=== PATIENT | male | born 1955 | race American Indian/Alaskan Native ===

== ENCOUNTER 2018-01-06 20:39 | Emergency (ER) | payer OTHER ==
[2018-01-06] MEDS ORDERED: ASPIRIN PO ONE (21:21)
[2018-01-06 21:29] LABS: Basophils % (Auto) 0.4 % (0.0-1.8); Eosinophils # (Auto) 0.1 K/mm3 (0.0-0.4); Eosinophils % (Auto) 0.8 % (0.0-4.3); Hematocrit 44.4 % (35.5-45.6); Hemoglobin 14.3 gm/dl (11.8-15.2); Mean Corpuscular HGB Conc 32 % (32-34); Mean Corpuscular Hemoglobin 31 pg (28-32); Mean Corpuscular Volume 97 fl (84-94); Monocytes # (Auto) 0.5 K/mm3 (0.0-0.8); Monocytes % (Auto) 6.3 % (0.0-7.3); Red Blood Count 4.56 M/mm3 (3.65-5.03); Red Cell Distribution Width 15.1 % (13.2-15.2)
[2018-01-06 21:40] LABS: INR 1.08 (0.87-1.13); Platelet Count 142 K/mm3 (140-440)
[2018-01-06 21:59] LABS: Alanine Aminotransferase 69 units/L (7-56); BUN/Creatinine Ratio 22; Blood Urea Nitrogen 22 mg/dL (9-20); Calcium 8.7 mg/dL (8.4-10.2); Hemolysis Index 12
--- NOTE | 2018-01-06 22:15 | XRay Report ---
FINAL REPORT PROCEDURE: XR CHEST 1V AP TECHNIQUE: Chest radiograph anteroposterior view. CPT 34236 HISTORY: Shortness of breath COMPARISON: No prior studies are available for comparison. FINDINGS: Heart: The heart size is slightly pronounced. Mediastinum/Vessels: Normal. Lungs/Pleural space: Normal. Bony thorax: No acute osseous abnormality. Life support devices: None. IMPRESSION: There is no evidence of an acute cardiopulmonary process. Mild cardiomegaly..
[2018-01-06] MEDS ORDERED: LASIX IV ONE (22:22)
[2018-01-06] MEDS ORDERED: PROVENTIL IH ONE (22:23)
[2018-01-06] MEDS ORDERED: DUONEB *Not for PRN Use IH ONE (22:23)
--- NOTE | 2018-01-06 22:41 | Emergency Department Report ---
ED Shortness of Breath HPI - General Chief Complaint: Dyspnea/Respdistress Stated Complaint: KEILA Time Seen by Provider: 01/06/18 22:06 Source: patient, EMS Mode of arrival: Ambulatory Limitations: No Limitations - History of Present Illness Initial Comments: 24 hours of progressive onset shortness of breath. Worse with exertion and position. Nonreactive cough. Patient is unable [employer] related to his COPD or CHF. Uses a bradycardia 3 days ago for the same complaint. No significant chest pain. Legs are more swollen than usual. Patient states been quite with his Lasix and his cardiac diet. Afebrile. Denies smoking, alcohol use, or drug use. - Related Data Previous Rx's Medication Instructions Recorded Last Taken Type predniSONE [Deltasone] 40 mg PO QDAY #8 tab 01/07/18 Unknown Rx Allergies Allergy/AdvReac Type Severity Reaction Status Date / Time No Known Allergies Allergy Unverified 01/06/18 21:20 ED Review of Systems ROS: Stated complaint: KEILA Other details as noted in HPI Comment: All other systems reviewed and negative Respiratory: cough, shortness of breath, SOB at rest. denies: wheezing Cardiovascular: edema ED Past Medical Hx - Past Medical History Hx Congestive Heart Failure: Yes Hx COPD: Yes - Surgical History Past Surgical History?: No - Social History Smoking Status: Former Smoker Substance Use Type: None - Medications Home Medications: Home Medications Medication Instructions Recorded Confirmed Last Taken Type predniSONE [Deltasone] 40 mg PO QDAY #8 tab 01/07/18 Unknown Rx ED Physical Exam - General Limitations: No Limitations General appearance: alert, in no apparent distress - Head Head exam: Present: atraumatic, normocephalic - Eye Eye exam: Present: normal appearance - ENT ENT exam: Present: mucous membranes moist - Neck Neck exam: Present: normal inspection - Respiratory Respiratory exam: Present: normal lung sounds bilaterally. Absent: respiratory distress - Cardiovascular Cardiovascular Exam: Present: regular rate, normal rhythm, JVD. Absent: systolic murmur, diastolic murmur, rubs, gallop - GI/Abdominal GI/Abdominal exam: Present: soft, normal bowel sounds - Rectal Rectal exam: Present: deferred - Extremities Exam Extremities exam: Present: normal inspection, pedal edema - Back Exam Back exam: Present: normal inspection - Neurological Exam Neurological exam: Present: alert, oriented X3 - Psychiatric Psychiatric exam: Present: normal affect, normal mood - Skin Skin exam: Present: warm, dry, intact, normal color. Absent: rash ED Course Vital Signs 01/06/18 01/06/18 01/06/18 20:38 21:51 22:01 Pulse Rate 108 H Respiratory 16 31 H 26 H Rate Blood Pressure 128/90 138/109 O2 Sat by Pulse 95 72 L Oximetry 01/06/18 22:14 Pulse Rate Respiratory 20 Rate Blood Pressure O2 Sat by Pulse 98 Oximetry - Reevaluation(s) Reevaluation #1: Patient feels much improved on reevaluation. 01/07/18 01:33 ED Medical Decision Making - Lab Data Result diagrams: 01/06/18 21:22 01/06/18 21:28 - EKG Data -: EKG Interpreted by Me EKG shows normal: sinus rhythm, axis, intervals, QRS complexes, ST-T waves Rate: tachycardia - Radiology Data Radiology results: report reviewed, image reviewed - Medical Decision Making 62-year-old male with past medical history of CHF, COPD that presents with 24 hours shortness of breath and leg swelling. Patient was seen at [place] couple of days ago and was told that he has heart failure. Patient states compliance with his medication. He is well-appearing on presentation. Vitals are stable. Pt is well appearing. Patient still endorsing being dyspneic. Patient does have 3+ pitting edema bilaterally on exam. He was given 40 mg IV Lasix in the ER. I'm unable to get his medical chart from [place] at this point in time. Patient has never been to this ER before. BP elevated at 9000. Patient with normal oxygenation on room air. After his breathing treatment and Lasix, he feels back to his baseline. Patient will be given steroids to go home with. He 'll continue taking his home oral Lasix. He'll follow-up with his family doctor for further management of his issues. - Differential Diagnosis pneumonia, COPD exacerbation, flash pulmonary edema, CHF exacerbation, ACS Critical care attestation.: If time is entered above; I have spent that time in minutes in the direct care of this critically ill patient, excluding procedure time. ED Disposition Clinical Impression: COPD exacerbation, CHF exacerbation Disposition: - TO HOME OR SELFCARE Is pt being admited?: No Condition: Stable Instructions: Chronic Obstructive Pulmonary Disease (ED), Heart Failure (ED) Prescriptions: predniSONE [Deltasone] 40 mg PO QDAY #8 tab Referrals: NOHEMI OROPEZA MD [Primary Care Provider] - 3-5 Days
--- NOTE | 2018-01-06 23:29 | XRay Report ---
FINAL REPORT PROCEDURE: XR CHEST ROUTINE 2V TECHNIQUE: Chest radiograph anteroposterior view. CPT 26604 HISTORY: shortness of breath COMPARISON: No prior studies are available for comparison. FINDINGS: Heart: Normal. Mediastinum/Vessels: Normal. Lungs/Pleural space: Normal. Bony thorax: No acute osseous abnormality. Life support devices: None. IMPRESSION: No acute cardiopulmonary abnormality.
[2018-01-07] MEDS ORDERED: LASIX IV ONE (01:27)
[2018-01-07 01:32] VITALS: BP 122/95
== END 2018-01-07 03:20 | disposition home or self-care (01) ==
LOC: ED 20:39
DX: J44.1 Chronic obstructive pulmonary disease with (acute) exacerbation (principal); I50.9 Heart failure, unspecified; Z87.891 Personal history of nicotine dependence
CPT/HCPCS: 36415; 71045; 71046; 80053; 83880; 84484; 85025; 85610; 85730; 93005; 93010; 96374; 96375; 99285; J1940; 94640

== ENCOUNTER 2018-06-06 21:51 | Inpatient (IN) | payer OTHER ==
[2018-06-06 22:41] LABS: Basophils % (Auto) 0.6 % (0.0-1.8); Eosinophils # (Auto) 0.1 K/mm3 (0.0-0.4); Eosinophils % (Auto) 0.9 % (0.0-4.3); Hematocrit 34.6 % (35.5-45.6); Hemoglobin 11.4 gm/dl (11.8-15.2); Lymphocytes # (Auto) 1.2 K/mm3 (1.2-5.4); Lymphocytes % (Auto) 17.2 % (13.4-35.0); Mean Corpuscular HGB Conc 33 % (32-34); Mean Corpuscular Hemoglobin 32 pg (28-32); Mean Corpuscular Volume 97 fl (84-94); Monocytes # (Auto) 0.7 K/mm3 (0.0-0.8); Monocytes % (Auto) 10.2 % (0.0-7.3); Platelet Count 308 K/mm3 (140-440); Red Blood Count 3.55 M/mm3 (3.65-5.03); Red Cell Distribution Width 15.3 % (13.2-15.2)
[2018-06-06 23:05] LABS: BUN/Creatinine Ratio 20; Blood Urea Nitrogen 16 mg/dL (9-20); Calcium 8.3 mg/dL (8.4-10.2); Hemolysis Index 4
--- NOTE | 2018-06-06 23:38 | XRay Report ---
FINAL REPORT PROCEDURE: Chest. TECHNIQUE: AP and lateral views. HISTORY: Shortness of breath . COMPARISON: Chest 01/06/2018. FINDINGS: The heart size is enlarged. There is mild tortuosity of the thoracic aorta. The lungs are grossly clear. There are no pleural effusions. The soft tissues and regional skeleton are unremarkable. IMPRESSION: Cardiomegaly.
--- NOTE | 2018-06-07 00:53 | Emergency Department Report ---
ED Shortness of Breath HPI - General Chief Complaint: Dyspnea/Respdistress Stated Complaint: KEILA Time Seen by Provider: 06/07/18 00:38 Source: patient Mode of arrival: Ambulatory Limitations: No Limitations - History of Present Illness Initial Comments: 62-year-old male with history of CHF associated with shortness of breath onset today. Patient reports dyspnea on exertion. Denies chest pain. Reported swelling in bilateral lower extremity 3 weeks. States he is not currently taking Lasix. Patient reports cough that is intermittently protective of white sputum. Denies fever and chills MD Complaint: shortness of breath, cough -: This evening Severity: moderate Improves With: oxygen, rest Worsens With: exertion Known History Of: congestive heart failure Associated Symptoms: cough, sputum production - Related Data Previous Rx's Medication Instructions Recorded Last Taken Type predniSONE [Deltasone] 40 mg PO QDAY #8 tab 01/07/18 Unknown Rx Allergies Allergy/AdvReac Type Severity Reaction Status Date / Time No Known Allergies Allergy Unverified 01/06/18 21:20 ED Review of Systems ROS: Stated complaint: KEILA Other details as noted in HPI Comment: All other systems reviewed and negative Constitutional: denies: chills, fever Respiratory: cough Cardiovascular: denies: chest pain, palpitations Musculoskeletal: other (bilateral leg swelling) ED Past Medical Hx - Past Medical History Hx Congestive Heart Failure: Yes Hx COPD: Yes - Surgical History Past Surgical History?: No - Social History Smoking Status: Former Smoker Substance Use Type: None - Medications Home Medications: Home Medications Medication Instructions Recorded Confirmed Last Taken Type predniSONE [Deltasone] 40 mg PO QDAY #8 tab 01/07/18 Unknown Rx ED Physical Exam - General Limitations: No Limitations General appearance: alert, in no apparent distress - Head Head exam: Present: atraumatic, normocephalic - Eye Eye exam: Present: normal appearance - ENT ENT exam: Present: mucous membranes moist - Neck Neck exam: Present: normal inspection - Respiratory Respiratory exam: Present: normal lung sounds bilaterally. Absent: respiratory distress - Cardiovascular Cardiovascular Exam: Present: normal rhythm, tachycardia - GI/Abdominal GI/Abdominal exam: Present: soft. Absent: tenderness - Extremities Exam Extremities exam: Present: other (2+ pitting edema BLE) - Neurological Exam Neurological exam: Present: alert, oriented X3 - Psychiatric Psychiatric exam: Present: normal affect, normal mood - Skin Skin exam: Present: warm, dry, intact, normal color. Absent: rash ED Course Vital Signs 06/06/18 06/07/18 06/07/18 22:03 00:52 01:50 Temperature 99.2 F 99.3 F Pulse Rate 113 H 110 H 108 H Respiratory 20 16 18 Rate Blood Pressure 114/78 Blood Pressure 123/92 126/92 [Left] O2 Sat by Pulse 100 99 98 Oximetry ED Medical Decision Making - Lab Data Result diagrams: 06/06/18 22:23 06/06/18 Unknown - EKG Data -: EKG Interpreted by Me EKG shows normal: axis, intervals, QRS complexes Rate: tachycardia - EKG Data Interpretation: nonspecific ST-T wave kyung 06/07/18 03:26 T wave inversions in V5-6 - Radiology Data Radiology results: report reviewed, image reviewed - Medical Decision Making 62-year-old male with history of CHF presents to ED with shortness of breath. Patient showing signs of volume overload with pitting edema in bilateral lower extremities dyspnea on exertion. Nurse ambulated patient around ER and O2 sats dropped into the 70s. BNP markedly elevated. Chest x-ray shows cardiomegaly but no pulmonary edema at this time. Will medicate with Lasix and admitted to hospitalist - Differential Diagnosis CHF, pulm edema, ACS Critical Care Time: Yes Critical care time in (mins) excluding proc time.: 35 Critical care attestation.: If time is entered above; I have spent that time in minutes in the direct care of this critically ill patient, excluding procedure time. Critical Care Time: 35 minutes. ED Disposition Clinical Impression: Hypoxia, CHF, acute on chronic Disposition: OP ADMIT IP TO THIS HOSP Is pt being admited?: Yes Condition: Stable Referrals: PRIMARY CARE, [Primary Care Provider] - 3-5 Days Time of Disposition: 03:06
[2018-06-07] MEDS ORDERED: LASIX IV ONE (03:05)
[2018-06-07] MEDS ORDERED: SODIUM CHLORIDE FLUSH SYRINGE 10 ML IV PRN (04:23)
[2018-06-07] MEDS ORDERED: TYLENOL PO PRN (04:23)
[2018-06-07] MEDS ORDERED: ZOFRAN IV PRN (04:23)
--- NOTE | 2018-06-07 04:25 | History and Physical Report ---
History of Present Illness Date of examination: 06/07/18 History of present illness: 62-year-old man with a history of CHF, COPD comes emergency room with complaints of shortness of breath, PND, orthopnea, dyspnea on exertion and lower extremity edema. He has been out of his Lasix for one month. Review of systems Constitutional: no weight loss, chills, fever Ears, eyes, nose, mouth and throat: no nasal congestion, no nasal discharge, no sinus pressure, no vision change, no red eye. Neck: No neck pain or rigidity. Cardiovascular: no chest pain, palpitations Respiratory: no cough Gastrointestinal: no abdominal pain hematochezia Genitourinary : no frequency , no hematuria Musculoskeletal: no joint swelling or muscle ache Integumentary: no rash, no pruritis Neurological: no parathesias, no numbness, no focal weakness Endocrine: no cold or heat intolerance, no polyuria or polydipsia Hematologic/Lymphatic: no easy bruising, no easy bleeding, no gland swelling Allergic/Immunologic: no urticaria, no angioedema. PAST MEDICAL HISTORY: CHF, COPD PAST SURGICAL HISTORY: None SOCIAL HISTORY: No alcohol, no drugs, tobacco FAMILY HISTORY: Hypertension Medications and Allergies Allergies Allergy/AdvReac Type Severity Reaction Status Date / Time No Known Allergies Allergy Unverified 01/06/18 21:20 Home Medications Medication Instructions Recorded Confirmed Last Taken Type Albuterol Sulfate [Proair 90 mcg IH DAILY 06/07/18 06/07/18 Unknown History Respiclick] Aspirin [Aspirin EC] 81 mg PO DAILY 06/07/18 06/07/18 Unknown History Atorvastatin [Lipitor Tab] 40 mg PO QHS 06/07/18 06/07/18 Unknown History Budesonide/Formoterol Fumarate 10.2 gm IH DAILY 06/07/18 06/07/18 Unknown History [Symbicort 160-4.5 Mcg Inhaler] Folic Acid [Folvite] 1 mg PO DAILY 06/07/18 06/07/18 Unknown History Metoprolol Succinate [Toprol Xl] 25 mg PO DAILY 06/07/18 06/07/18 Unknown History Exam - Physical Exam Narrative exam: Gen. appearance: Patient lying in bed, no apparent distress HEENT: Normocephalic, atraumatic, pupils equally round and reactive to light, extraocular movement intact, and no sclericterus,. No JVD or thyromegaly or nodule,neck supple, no carotid bruit ,mucous membranes moist, no exudate or erythema Heart: S1, S2, regular rate and rhythm Lungs: Crackles bilaterally, breathing comfortable Abdomen: Positive bowel sounds, non-tender, nondistended, no organomegaly Extremity:2+edema up to knee, no cyanosis, clubbing Skin: no rash, dry, warm Neuro: Oriented 3, cranial nerves II-12 intact, speech is fluent, motor and sensory intact - Constitutional Vitals: Temp Pulse Resp BP Pulse Ox 99.3 F 116 H 18 107/80 98 06/07/18 00:52 06/07/18 04:00 06/07/18 04:00 06/07/18 04:00 06/07/18 04:00 Results - Labs CBC & Chem 7: 06/06/18 22:23 06/06/18 Unknown Labs: Abnormal lab results 06/06/18 06/06/18 06/06/18 Range/Units 22:23 Unknown Unknown RBC 3.55 L (3.65-5.03) M/mm3 Hgb 11.4 L (11.8-15.2) gm/dl Hct 34.6 L (35.5-45.6) % MCV 97 H (84-94) fl RDW 15.3 H (13.2-15.2) % [place] % (Auto) 10.2 H (0.0-7.3) % Seg Neutrophils % 71.1 H (40.0-70.0) % Chloride 95.2 L (98-107) mmol/L Calcium 8.3 L (8.4-10.2) mg/dL NT-Pro-B Natriuret Pep 26797 H (0-900) pg/mL - Imaging and Cardiology EKG: report reviewed Chest x-ray: report reviewed Assessment and Plan Assessment Acute on chronic CHF, probably diastolic dysfunction COPD Plan Admit to medicine Diurese with IV Lasix Start Beta bin, PABLITO inhibitor, aspirin Check cardiac enzymes, echo, consult cardiology Monitor I's and O's, daily weights DVT prophylaxis
[2018-06-07 05:15] LABS: Creatine Kinase MB 1.5 ng/mL (0.0-4.0)
[2018-06-07] MEDS ORDERED: LASIX IV SCH (06:00)
[2018-06-07] MEDS ORDERED: SODIUM CHLORIDE FLUSH SYRINGE 10 ML IV SCH (10:00)
[2018-06-07] MEDS ORDERED: LOVENOX SUB-Q SCH ×2 (10:00)
[2018-06-07] MEDS ORDERED: COREG PO SCH (10:00)
[2018-06-07] MEDS ORDERED: BABY ASPIRIN PO SCH (10:00)
[2018-06-07] MEDS ORDERED: ZESTRIL PO SCH (10:00)
[2018-06-07 10:52] LABS: Creatine Kinase MB 1.4 ng/mL (0.0-4.0)
--- NOTE | 2018-06-07 11:01 | Consultation ---
History of Present Illness Consult date: 06/07/18 Requesting physician: MEL CESAR Consult reason: congestive heart failure History of present illness: The pt is a 62 YO male with a past medical history significant for HF, COPD, HTN , crack cocaine use. He is previously unknown to our practice. He presented with complaints of progressively worsening SOB, MONSIVAIS, orthopnea and BLE edema for several days prior to arrival. He states that approx 5 months ago, he was hospitalized and diagnosed with heart failure and COPD at [place]. He was told that his EF is 15%. He reports that he underwent LHC at [place] at that time and was told he had no blockages. He admits that following that hospitalization, he continued to smoke crack cocaine and has not been compliant with medications or cardiology follow up. He denies any chest pain, palpitations, n/v, diaphoresis, dizziness or syncope. Past History Past Medical History: COPD, heart failure, hypertension Social history: single, Lives alone, other (crack cocaine use) Medications and Allergies Allergies Allergy/AdvReac Type Severity Reaction Status Date / Time No Known Allergies Allergy Unverified 01/06/18 21:20 Home Medications Medication Instructions Recorded Confirmed Last Taken Type Albuterol Sulfate [Proair 90 mcg IH DAILY 06/07/18 06/07/18 Unknown History Respiclick] Aspirin [Aspirin EC] 81 mg PO DAILY 06/07/18 06/07/18 Unknown History Atorvastatin [Lipitor Tab] 40 mg PO QHS 06/07/18 06/07/18 Unknown History Budesonide/Formoterol Fumarate 10.2 gm IH DAILY 06/07/18 06/07/18 Unknown History [Symbicort 160-4.5 Mcg Inhaler] Folic Acid [Folvite] 1 mg PO DAILY 06/07/18 06/07/18 Unknown History Metoprolol Succinate [Toprol Xl] 25 mg PO DAILY 06/07/18 06/07/18 Unknown History Active Meds: Active Medications Acetaminophen (Tylenol) 650 mg PO Q4H PRN PRN Reason: Pain MILD(1-3)/Fever >100.5/BACA Aspirin (Baby Aspirin) 81 mg PO QDAY [facility] Last Admin: 06/07/18 10:39 Dose: 81 mg Carvedilol (Coreg) 3.125 mg PO BID [facility] Last Admin: 06/07/18 10:39 Dose: 3.125 mg Enoxaparin Sodium (Lovenox) 40 mg SUB-Q QDAY@1000 [facility] Last Admin: 06/07/18 10:39 Dose: 40 mg Furosemide (Lasix) 40 mg IV BID@0600,1800 [facility] Last Admin: 06/07/18 05:53 Dose: 40 mg Lisinopril (Zestril) 2.5 mg PO QDAY [facility] Last Admin: 06/07/18 10:38 Dose: 2.5 mg Ondansetron HCl (Zofran) 4 mg IV Q8H PRN PRN Reason: Nausea And Vomiting Sodium Chloride (Sodium Chloride Flush Syringe 10 Ml) 10 ml IV BID [facility] Last Admin: 06/07/18 10:39 Dose: 10 ml Sodium Chloride (Sodium Chloride Flush Syringe 10 Ml) 10 ml IV PRN PRN PRN Reason: LINE FLUSH Review of Systems Constitutional: no weight loss, no weight gain, no fever, no chills, no sweats Ears, nose, mouth and throat: no ear pain, no nose pain, no sinus pressure, no sinus pain Cardiovascular: orthopnea, edema, shortness of breath, dyspnea on exertion, paroxysmal nocturnal dyspnea, leg edema, decreased exercise tolerance, no chest pain, no palpitations, no rapid/irregular heart beat, no syncope, no lightheadedness Respiratory: shortness of breath, dyspnea on exertion, wheezing, pain on inspiration, no cough, no congestion Gastrointestinal: no abdominal pain, no nausea, no vomiting, no diarrhea, no constipation, no change in bowel habits Genitourinary Male: no dysuria, no hematuria, no flank pain, no discharge, no urinary frequency, no urinary hesitancy Musculoskeletal: no neck stiffness, no neck pain, no shooting arm pain, no arm numbness/tingling, no low back pain, no shooting leg pain, no leg numbness/ tingling, no redness of joints Integumentary: no rash, no pruritis, no redness, no sores, no wounds Neurological: no head injury, no paralysis, no weakness, no parathesias, no numbness, no tingling, no seizures, no syncope Psychiatric: no anxiety Endocrine: no cold intolerance, no heat intolerance Hematologic/Lymphatic: no easy bruising, no easy bleeding Allergic/Immunologic: no urticaria Physical Examination Vital Signs Temp Pulse Resp BP Pulse Ox 99.2 F 113 H 20 114/78 100 06/06/18 22:03 06/06/18 22:03 06/06/18 22:03 06/06/18 22:03 06/06/18 22:03 General appearance: other (short of breath with conversation and minimal exertion) HEENT: Positive: PERRL, Normocephaly, Mucus Membranes Moist Neck: Positive: neck supple, trachea midline, JVD/HJR Cardiac: Positive: Reg Rate and Rhythm, S1/S2, S3, S4 Lungs: Positive: Decreased Breath Sounds Neuro: Positive: Grossly Intact Abdomen: Positive: Soft. Negative: Tender Skin: Positive: Clear. Negative: Rash, Wound Musculoskeletal: No Pain Extremities: Present: +1 Edema (BLE) Results 06/06/18 22:23 06/06/18 Unknown Cardiac Enzymes 06/07/18 06/07/18 Range/Units 04:38 09:58 CK-MB (CK-2) 1.5 1.4 (0.0-4.0) ng/mL CBC 06/06/18 Range/Units 22:23 WBC 7.1 (4.5-11.0) K/mm3 RBC 3.55 L (3.65-5.03) M/mm3 Hgb 11.4 L (11.8-15.2) gm/dl Hct 34.6 L (35.5-45.6) % Plt Count 308 (140-440) K/mm3 Lymph # 1.2 (1.2-5.4) K/mm3 Sullivan # 0.7 (0.0-0.8) K/mm3 Eos # 0.1 (0.0-0.4) K/mm3 Baso # 0.0 (0.0-0.1) K/mm3 Comprehensive Metabolic Panel 06/06/18 Range/Units Unknown Sodium 140 (137-145) mmol/L Potassium 3.9 (3.6-5.0) mmol/L Chloride 95.2 L (98-107) mmol/L Carbon Dioxide 26 (22-30) mmol/L BUN 16 (9-20) mg/dL Creatinine 0.8 (0.8-1.5) mg/dL Glucose 98 (75-100) mg/dL Calcium 8.3 L (8.4-10.2) mg/dL - Imaging and Cardiology Echo: pending EKG: report reviewed, image reviewed EKG interpretations - Telemetry EKG Rhythm: Sinus Rhythm - EKG Sinus rhythms and dysrhythmias: sinus rhythm Assessment and Plan Agree with present cardiac regimen. Obtain echo. Request medical records from [place]. Assessment and plan reviewed with pt at bedside. The patient has been seen in conjunction with Dr. Navarro who agree with the assessment and plan of care. - Patient Problems (1) Acute heart failure Current Visit: Yes Status: Chronic (2) COPD (chronic obstructive pulmonary disease) Current Visit: Yes Status: Chronic (3) Sinus tachycardia Current Visit: Yes Status: Acute (4) Hypoxia Current Visit: Yes Status: Acute (5) HTN (hypertension) Current Visit: Yes Status: Chronic (6) Crack cocaine use Current Visit: Yes Status: Chronic
[2018-06-07 12:20] VITALS: BP 98/72
== END 2018-06-07 14:47 | disposition left against medical advice (07) | DRG 293 ==
LOC: ED 21:51 → 4A 06-07 04:51
PROVIDERS: ADMIT Internal Medicine; ATTEND Internal Medicine
DX: I11.0 Hypertensive heart disease with heart failure (principal); I50.9 Heart failure, unspecified; J44.9 Chronic obstructive pulmonary disease, unspecified; F14.90 Cocaine use, unspecified, uncomplicated; R00.0 Tachycardia, unspecified; R09.02 Hypoxemia; Z82.49 Family history of ischemic heart disease and other diseases of the circulatory system; Z79.82 Long term (current) use of aspirin; Z79.899 Other long term (current) drug therapy
CPT/HCPCS: 36415; 71046; 80048; 82550; 82553; 83880; 84484; 85025; 93005; 93010; 96374; 99291; J1650; J1940